=== PATIENT | male | born 1935 | race Two or more races ===

== ENCOUNTER 2024-04-18 19:48 | Inpatient (IN) | payer OTHER, MEDICAID ==
[~2024-04-18] VITALS: Ht 167.6 cm; Wt 96.2 kg
[2024-04-18 20:41] LABS: EOSINOPHILS % (AUTO) 0.1 % (0.0-6.0); MEAN CORPUSCULAR HGB CONC 30 g/dl (31.0-36.0); NEUTROPHILS % (AUTO) 71.2 % (43.0-81.0); RED BLOOD CELL COUNT(AUTO) 2.27 MIL/uL (4.5-6.0)
[2024-04-18 20:48] LABS: BASOPHILS % (AUTO) 0.3 % (0.0-2.0); HEMATOCRIT 22 % (39-51); LYMPHOCYTES # (AUTO) 3.3 K/uL (0.8-4.8); LYMPHOCYTES % (AUTO) 22.1 % (20.0-44.0); MEAN CORPUSCULAR HEMOGLOBIN 29 PG (26.0-33.0); MEAN CORPUSCULAR VOLUME 97 fL (80-96); MONOCYTES # (AUTO) 0.9 K/uL (0.1-1.30); MONOCYTES % (AUTO) 6.3 % (2.0-12.0); NEUTROPHILS # (AUTO) 10.5 K/uL (1.8-8.9); PLATELET COUNT (AUTO) 230 K/uL (150-450); RED CELL DISTRIBUTION WIDTH 24.9 % (11.5-15.0); WHITE BLOOD COUNT (AUTO) 14.7 K/uL (4.3-11.0)
[2024-04-18 20:49] LABS: HEMOGLOBIN 6.6 g/dL (13.5-17.5)
[2024-04-18 20:53] LABS: INR 1.33 (0.91-1.10); PARTIAL THROMBOPLASTIN TIME 44.7 SEC (24.3-34.3); PROTHROMBIN TIME 13.8 SECS (9.2-11.1)
[2024-04-18 21:13] LABS: ALANINE AMINOTRANSFERASE 14 U/L (12-78); ALKALINE PHOSPHATASE 123 U/L (46-116); ASPARTATE AMINOTRANSFERASE 22 U/L (15-37); BILIRUBIN,DIRECT 0.3 mg/dL (0.0-0.2); BILIRUBIN,TOTAL 0.9 mg/dL (0.2-1.0); CALCIUM, SERUM 9.1 mg/dL (8.5-10.1); CARBON DIOXIDE 20 mmol/L (21-32); CHLORIDE 96 mmol/L (98-107); CREATININE 5.8 mg/dL (0.6-1.3); GLUCOSE 270 mg/dL (74-106); NT-PRO BNP > 25000 pg/mL (0-125); POTASSIUM 5.2 mmol/L (3.5-5.1); SODIUM SERUM 137 mmol/L (136-145); TOTAL PROTEIN, SERUM 6.5 g/dL (6.4-8.2)
[2024-04-18 21:14] LABS: LACTIC ACID 6.6 mmol/L (0.4-2.0)
[2024-04-18 21:16] LABS: UREA NITROGEN, BLOOD 81 mg/dL (7-18)
[2024-04-18] MEDS ORDERED: NOREPINEPHRINE 8MG/250ML RTU 250 ML IV ONE (21:28)
[2024-04-18 21:35] LABS: LYMPHOCYTES % (MANUAL) 18 % (16-48); MONOCYTES % (MANUAL) 5 % (0-11.0); NEUTROPHILS % (MANUAL) 77 (42-76); PLATELET ESTIMATE ADEQUATE
[2024-04-18 21:36] LABS: ANISOCYTOSIS 1+; HYPOCHROMASIA 1+; OVALOCYTES 1+
[2024-04-18] MEDS: NOREPINEPHRINE 8 MG in IV D5W 242 ML IV PRN (21:44)
[2024-04-18] MEDS ORDERED: APIX2.5T PO (22:30)
[2024-04-18] MEDS ORDERED: INSU100V7 SQ (22:30)
[2024-04-18] MEDS ORDERED: DOCU100T2 PO (22:30)
[2024-04-18] MEDS ORDERED: FOLI0.8T23 PO (22:30)
[2024-04-18] MEDS ORDERED: SENN-301 PO (22:30)
[2024-04-18] MEDS ORDERED: ASPI-1169 PO (22:30)
[2024-04-18] MEDS ORDERED: FERR325T24 PO (22:30)
[2024-04-18] MEDS ORDERED: [UNRECOGNIZED DRUG - CODE] PO (22:30)
[2024-04-18] MEDS ORDERED: MIRT-74 PO (22:30)
[2024-04-18] MEDS ORDERED: ASCO-352 PO (22:30)
[2024-04-18] MEDS ORDERED: ZINC50TA69 PO (22:30)
[2024-04-18] MEDS ORDERED: FURO-144 PO (22:30)
[2024-04-18] MEDS ORDERED: DORZ1DRO7 OP (22:30)
[2024-04-18] MEDS ORDERED: LIDO1ADH71 (22:30)
[2024-04-18] MEDS ORDERED: CRAN250C PO (22:30)
[2024-04-18] MEDS ORDERED: MIDO10TA PO (22:30)
[2024-04-18] MEDS ORDERED: SEVE800T7 PO (22:30)
[2024-04-19] VITALS (106 sets, daily range): BP systolic 78–161; BP diastolic 21–98; TEMP 97.7–98.7; O2SAT 88–100
[2024-04-19] MEDS ORDERED: Z GUARD REMEDY 4 OZ OINT TP PRN
[2024-04-19] MEDS ORDERED: MAGNESIUM HYDROXIDE 30 ML UDC PO PRN
[2024-04-19] MEDS: NOREPINEPHRINE 8 MG in IV D5W 242 ML IV PRN (00:30)
[2024-04-19] MEDS ORDERED: NITROGLYCERIN 0.4 MG/TAB BOTTLE SL PRN (00:30)
[2024-04-19] MEDS: SODIUM POLYSTYRENE SULFONATE 15 G/60 ML BOTTLE PO ONE (01:43)
[2024-04-19] MEDS: MAG HYDROX/AL HYDROX/SIMETH 30 ML UDC PO PRN (01:43)
[2024-04-19] MEDS: ALBUTEROL FS 2.5 MG/3 ML VIAL.NEB NEB SCH (02:03)
[2024-04-19] MEDS: IPRATROPIUM NEB FS 0.5 MG/2.5 ML AMPUL.NEB NEB SCH (02:03)
[2024-04-19] MEDS ORDERED: AZITHROMYCIN 500 MG VIAL ONE (02:11)
[2024-04-19] MEDS: AZITHROMYCIN 500 MG in IV D5W 250 ML IV SCH (02:28)
[2024-04-19] MEDS: ONDANSETRON HCL/PF 4 MG/2 ML VIAL IVP PRN (05:47)
[2024-04-19 07:18] LABS: BASOPHILS % (AUTO) 0.1 % (0.0-2.0); HEMATOCRIT 25 % (39-51); HEMOGLOBIN 7.9 g/dL (13.5-17.5); LYMPHOCYTES # (AUTO) 2.7 K/uL (0.8-4.8); LYMPHOCYTES % (AUTO) 13.6 % (20.0-44.0); MEAN CORPUSCULAR HEMOGLOBIN 30 PG (26.0-33.0); MEAN CORPUSCULAR HGB CONC 32 g/dl (31.0-36.0); MEAN CORPUSCULAR VOLUME 94 fL (80-96); MONOCYTES # (AUTO) 1.8 K/uL (0.1-1.30); MONOCYTES % (AUTO) 9.1 % (2.0-12.0); NEUTROPHILS % (AUTO) 77.2 % (43.0-81.0); PLATELET COUNT (AUTO) 225 K/uL (150-450); RED BLOOD CELL COUNT(AUTO) 2.66 MIL/uL (4.5-6.0); RED CELL DISTRIBUTION WIDTH 22.7 % (11.5-15.0); WHITE BLOOD COUNT (AUTO) 19.4 K/uL (4.3-11.0)
[2024-04-19 07:25] LABS: LACTIC ACID 4.1 mmol/L (0.4-2.0)
[2024-04-19] MEDS: PANTOPRAZOLE 40 MG VIAL IV SCH (09:11)
[2024-04-19] MEDS ORDERED: EPOETIN ALFA (10,000 UNIT) 10,000 UNIT/ML VIAL SQ SCH (10:30)
[2024-04-19 10:45] LABS: ALANINE AMINOTRANSFERASE 190 U/L (12-78); ALBUMIN 2.9 g/dL (3.4-5.0); ALKALINE PHOSPHATASE 122 U/L (46-116); ASPARTATE AMINOTRANSFERASE 273 U/L (15-37); BILIRUBIN,DIRECT 0.6 mg/dL (0.0-0.2); BILIRUBIN,TOTAL 1.3 mg/dL (0.2-1.0); CALCIUM, SERUM 9.1 mg/dL (8.5-10.1); CARBON DIOXIDE 17 mmol/L (21-32); CHLORIDE 95 mmol/L (98-107); GLUCOSE 397 mg/dL (74-106); MAGNESIUM 2.3 mg/dL (1.8-2.4); PHOSPHORUS 5.4 mg/dL (2.5-4.9); POTASSIUM 5.3 mmol/L (3.5-5.1); SODIUM SERUM 135 mmol/L (136-145); TOTAL PROTEIN, SERUM 6.3 g/dL (6.4-8.2)
[2024-04-19 10:47] LABS: UREA NITROGEN, BLOOD 90 mg/dL (7-18)
[2024-04-19 11:27] LABS: IRON, SERUM 206 ug/dl (50-175); TOTAL IRON BINDING CAPACITY 205 ug/dl (250-450)
[2024-04-19 11:33] LABS: NT-PRO BNP > 25000 pg/mL (0-125)
[2024-04-19 12:35] LABS: CHOLESTEROL 117 mg/dL (<200); HDL CHOLESTEROL 30 mg/dL (40-60); LDL 54 mg/dL (0-99); PREALBUMIN 18.3 MG/DL (18.0-35.7); TRIGLYCERIDES 128 mg/dL (30-150)
[2024-04-19] MEDS: EPOETIN ALFA (10,000 UNIT) 10,000 UNIT/ML VIAL SQ SCH (14:00)
[2024-04-19 15:06] LABS: ANISOCYTOSIS 2+; LYMPHOCYTES % (MANUAL) 10 % (16-48); MONOCYTES % (MANUAL) 5 % (0-11.0); NEUTROPHILS % (MANUAL) 85 (42-76); PLATELET ESTIMATE ADEQUATE
[2024-04-19 15:07] LABS: HYPOCHROMASIA 1+
[2024-04-19] MEDS: BLOOD SUGAR DIAGNOSTIC 1 EACH STRIP VI SCH (16:40)
[2024-04-19] MEDS: VANCOMYCIN 1.5 GM in IV D5W 500 ML IV ONE (17:48)
[2024-04-19] MEDS: PIPERACILLIN /TAZOBACTAM 2.25 G in IV D5W 50 ML IV SCH (19:49)
[2024-04-19] MEDS: ACETAMINOPHEN 325 MG TABLET PO PRN (19:49)
[2024-04-19] MEDS: ZOLPIDEM TARTRATE 5 MG TABLET PO PRN (21:14)
[2024-04-19] MEDS: *INSULIN REGULAR(HUMULIN R)HUM 100 UNIT/ML VIAL SQ PRN (21:32)
[2024-04-20] VITALS (113 sets, daily range): BP systolic 42–162; BP diastolic 17–123; TEMP 98.1–98.6; O2SAT 90–100
[2024-04-20 07:13] LABS: CALCIUM, SERUM 8.5 mg/dL (8.5-10.1); CARBON DIOXIDE 23 mmol/L (21-32); CHLORIDE 91 mmol/L (98-107); CREATININE 4.4 mg/dL (0.6-1.3); GLUCOSE 290 mg/dL (74-106); POTASSIUM 3.4 mmol/L (3.5-5.1); SODIUM SERUM 129 mmol/L (136-145); UREA NITROGEN, BLOOD 54 mg/dL (7-18)
[2024-04-20] MEDS: INSULIN REGULAR, HUMAN 100 UNIT/ML 3 ML VIAL SQ PRN (07:56)
[2024-04-20] MEDS: BISACODYL SUPP (10 MG) 10 MG/SUPP.RECT SUPP.RECT RC ONE (10:22)
[2024-04-20] MEDS: PROSOURCE / PROSTAT (PYXIS) 30 ML UDC PO SCH (12:34)
[2024-04-20 13:45] LABS: BASOPHILS % (AUTO) 0.3 % (0.0-2.0); EOSINOPHILS % (AUTO) 0.1 % (0.0-6.0); HEMATOCRIT 24 % (39-51); HEMOGLOBIN 7.6 g/dL (13.5-17.5); LYMPHOCYTES # (AUTO) 2.1 K/uL (0.8-4.8); MEAN CORPUSCULAR HEMOGLOBIN 29 PG (26.0-33.0); MEAN CORPUSCULAR HGB CONC 32 g/dl (31.0-36.0); MEAN CORPUSCULAR VOLUME 92 fL (80-96); MONOCYTES % (AUTO) 7.7 % (2.0-12.0); NEUTROPHILS # (AUTO) 10.1 K/uL (1.8-8.9); NEUTROPHILS % (AUTO) 75.9 % (43.0-81.0); PLATELET COUNT (AUTO) 196 K/uL (150-450); RED BLOOD CELL COUNT(AUTO) 2.64 MIL/uL (4.5-6.0); RED CELL DISTRIBUTION WIDTH 24.2 % (11.5-15.0); WHITE BLOOD COUNT (AUTO) 13.4 K/uL (4.3-11.0)
[2024-04-20] MEDS: DOCUSATE SODIUM 100 MG CAPSULE PO SCH (16:37)
[2024-04-20] MEDS ORDERED: NOREPINEPHRINE 32 MG in IV NS 0.9% 218 ML IV PRN (20:30)
[2024-04-20] MEDS: IV NS 0.9% 250 ML IV PRN (21:12)
[2024-04-20] MEDS: SENNOSIDES 8.6 MG TABLET PO SCH (21:13)
[2024-04-21] VITALS (106 sets, daily range): BP systolic 66–147; BP diastolic 24–124; TEMP 98–98.6; O2SAT 95–100
[2024-04-21 05:37] LABS: ALANINE AMINOTRANSFERASE 175 U/L (12-78); ALBUMIN 2.7 g/dL (3.4-5.0); ALKALINE PHOSPHATASE 137 U/L (46-116); ASPARTATE AMINOTRANSFERASE 136 U/L (15-37); BILIRUBIN,TOTAL 0.8 mg/dL (0.2-1.0); CARBON DIOXIDE 19 mmol/L (21-32); CHLORIDE 89 mmol/L (98-107); GLUCOSE 342 mg/dL (74-106); SODIUM SERUM 125 mmol/L (136-145); TOTAL PROTEIN, SERUM 6.5 g/dL (6.4-8.2); UREA NITROGEN, BLOOD 62 mg/dL (7-18)
[2024-04-21 05:56] LABS: CALCIUM, SERUM 7.8 mg/dL (8.5-10.1); CREATININE 5.4 mg/dL (0.6-1.3); MAGNESIUM 2.2 mg/dL (1.8-2.4)
[2024-04-21 05:57] LABS: BASOPHILS % (AUTO) 0.3 % (0.0-2.0); EOSINOPHILS % (AUTO) 0.2 % (0.0-6.0); HEMATOCRIT 29 % (39-51); HEMOGLOBIN 8.5 g/dL (13.5-17.5); LYMPHOCYTES # (AUTO) 2.5 K/uL (0.8-4.8); LYMPHOCYTES % (AUTO) 23.4 % (20.0-44.0); MEAN CORPUSCULAR HEMOGLOBIN 30 PG (26.0-33.0); MEAN CORPUSCULAR HGB CONC 29 g/dl (31.0-36.0); MEAN CORPUSCULAR VOLUME 103 fL (80-96); MONOCYTES # (AUTO) 0.9 K/uL (0.1-1.30); MONOCYTES % (AUTO) 8.6 % (2.0-12.0); NEUTROPHILS # (AUTO) 7.1 K/uL (1.8-8.9); NEUTROPHILS % (AUTO) 67.5 % (43.0-81.0); PLATELET COUNT (AUTO) 176 K/uL (150-450); RED BLOOD CELL COUNT(AUTO) 2.83 MIL/uL (4.5-6.0); RED CELL DISTRIBUTION WIDTH 25.1 % (11.5-15.0); WHITE BLOOD COUNT (AUTO) 10.5 K/uL (4.3-11.0)
[2024-04-21 07:10] LABS: HEPATITIS B SURFACE AB Reactive (.)
[2024-04-21] MEDS: PANTOPRAZOLE 40 MG TABLET.DR PO SCH (08:14)
[2024-04-21] MEDS: NOREPINEPHRINE 8 MG in IV D5W 242 ML IV PRN (10:09)
[2024-04-21] MEDS: GUAIFENESIN 300 MG/15 ML UDC PO PRN (16:06)
[2024-04-22] VITALS (113 sets, daily range): BP systolic 51–162; BP diastolic 27–133; TEMP 97.6–98.4; O2SAT 90–100
[2024-04-22] MEDS ORDERED: GUAIFENESIN 300 MG/15 ML UDC PO PRN
[2024-04-22] MEDS: VANCOMYCIN POST DIALYSIS 500MG IV PRN (05:50)
[2024-04-22 07:53] LABS: BASOPHILS % (AUTO) 0.1 % (0.0-2.0); EOSINOPHILS % (AUTO) 0.3 % (0.0-6.0); HEMATOCRIT 24 % (39-51); HEMOGLOBIN 7.9 g/dL (13.5-17.5); LYMPHOCYTES # (AUTO) 1.5 K/uL (0.8-4.8); LYMPHOCYTES % (AUTO) 15.9 % (20.0-44.0); MEAN CORPUSCULAR HEMOGLOBIN 30 PG (26.0-33.0); MEAN CORPUSCULAR HGB CONC 32 g/dl (31.0-36.0); MEAN CORPUSCULAR VOLUME 92 fL (80-96); MONOCYTES # (AUTO) 0.7 K/uL (0.1-1.30); MONOCYTES % (AUTO) 7.6 % (2.0-12.0); NEUTROPHILS # (AUTO) 7.2 K/uL (1.8-8.9); NEUTROPHILS % (AUTO) 76.1 % (43.0-81.0); PLATELET COUNT (AUTO) 166 K/uL (150-450); RED BLOOD CELL COUNT(AUTO) 2.65 MIL/uL (4.5-6.0); RED CELL DISTRIBUTION WIDTH 23.2 % (11.5-15.0); WHITE BLOOD COUNT (AUTO) 9.4 K/uL (4.3-11.0)
[2024-04-22 08:09] LABS: ALANINE AMINOTRANSFERASE 195 U/L (12-78); ALBUMIN 2.7 g/dL (3.4-5.0); ALKALINE PHOSPHATASE 134 U/L (46-116); ASPARTATE AMINOTRANSFERASE 84 U/L (15-37); BILIRUBIN,TOTAL 1.1 mg/dL (0.2-1.0); CALCIUM, SERUM 7.8 mg/dL (8.5-10.1); CARBON DIOXIDE 23 mmol/L (21-32); CHLORIDE 87 mmol/L (98-107); CREATININE 4.6 mg/dL (0.6-1.3); GLUCOSE 254 mg/dL (74-106); PHOSPHORUS 4.5 mg/dL (2.5-4.9); SODIUM SERUM 128 mmol/L (136-145); TOTAL PROTEIN, SERUM 6.2 g/dL (6.4-8.2); UREA NITROGEN, BLOOD 43 mg/dL (7-18)
[2024-04-22] MEDS: HYDROCORTISONE SOD SUCCINATE 100 MG/2 ML VIAL IV SCH (08:44)
[2024-04-22] MEDS: INSULIN GLARGINE, 100 UNIT/ML CARTRIDGE SQ ONE (18:44)
[2024-04-23] VITALS (83 sets, daily range): BP systolic 79–133; BP diastolic 39–105; TEMP 97.5–98.1; O2SAT 91–100
[2024-04-23] MEDS ORDERED: TRAMADOL HCL 50 MG TABLET PO PRN
[2024-04-23] MEDS: TRAMADOL HCL 50 MG TABLET PO PRN (00:46)
[2024-04-23 05:05] LABS: BASOPHILS % (AUTO) 0.2 % (0.0-2.0); HEMATOCRIT 25 % (39-51); HEMOGLOBIN 8.1 g/dL (13.5-17.5); LYMPHOCYTES # (AUTO) 1.1 K/uL (0.8-4.8); LYMPHOCYTES % (AUTO) 10.7 % (20.0-44.0); MEAN CORPUSCULAR HEMOGLOBIN 31 PG (26.0-33.0); MEAN CORPUSCULAR HGB CONC 32 g/dl (31.0-36.0); MEAN CORPUSCULAR VOLUME 96 fL (80-96); MONOCYTES # (AUTO) 0.4 K/uL (0.1-1.30); MONOCYTES % (AUTO) 3.7 % (2.0-12.0); NEUTROPHILS # (AUTO) 9.1 K/uL (1.8-8.9); NEUTROPHILS % (AUTO) 85.4 % (43.0-81.0); PLATELET COUNT (AUTO) 187 K/uL (150-450); RED BLOOD CELL COUNT(AUTO) 2.64 MIL/uL (4.5-6.0); RED CELL DISTRIBUTION WIDTH 24.8 % (11.5-15.0); WHITE BLOOD COUNT (AUTO) 10.7 K/uL (4.3-11.0)
[2024-04-23 05:26] LABS: ALANINE AMINOTRANSFERASE 184 U/L (12-78); ALBUMIN 2.9 g/dL (3.4-5.0); ALKALINE PHOSPHATASE 123 U/L (46-116); ASPARTATE AMINOTRANSFERASE 71 U/L (15-37); BILIRUBIN,TOTAL 0.9 mg/dL (0.2-1.0); CARBON DIOXIDE 22 mmol/L (21-32); CHLORIDE 86 mmol/L (98-107); CREATININE 5.7 mg/dL (0.6-1.3); GLUCOSE 357 mg/dL (74-106); MAGNESIUM 2.2 mg/dL (1.8-2.4); PHOSPHORUS 5.7 mg/dL (2.5-4.9); POTASSIUM 3.1 mmol/L (3.5-5.1); SODIUM SERUM 125 mmol/L (136-145); TOTAL PROTEIN, SERUM 6.8 g/dL (6.4-8.2); UREA NITROGEN, BLOOD 53 mg/dL (7-18)
[2024-04-23] MEDS: ASPIRIN 81 MG TAB.CHEW PO SCH (09:56)
[2024-04-23] MEDS: INSULIN GLARGINE, 100 UNIT/ML CARTRIDGE SQ SCH (21:29)
[2024-04-24] VITALS (98 sets, daily range): BP systolic 70–131; BP diastolic 33–103; TEMP 97.5–98; O2SAT 96–100
[2024-04-24 06:40] LABS: BASOPHILS % (AUTO) 0.1 % (0.0-2.0); HEMATOCRIT 27 % (39-51); HEMOGLOBIN 8.4 g/dL (13.5-17.5); LYMPHOCYTES # (AUTO) 1.5 K/uL (0.8-4.8); LYMPHOCYTES % (AUTO) 10.4 % (20.0-44.0); MEAN CORPUSCULAR HEMOGLOBIN 30 PG (26.0-33.0); MEAN CORPUSCULAR HGB CONC 32 g/dl (31.0-36.0); MEAN CORPUSCULAR VOLUME 94 fL (80-96); MONOCYTES # (AUTO) 0.6 K/uL (0.1-1.30); MONOCYTES % (AUTO) 3.9 % (2.0-12.0); NEUTROPHILS # (AUTO) 12.6 K/uL (1.8-8.9); NEUTROPHILS % (AUTO) 85.6 % (43.0-81.0); PLATELET COUNT (AUTO) 215 K/uL (150-450); RED BLOOD CELL COUNT(AUTO) 2.83 MIL/uL (4.5-6.0); RED CELL DISTRIBUTION WIDTH 26.3 % (11.5-15.0); WHITE BLOOD COUNT (AUTO) 14.7 K/uL (4.3-11.0)
[2024-04-24 06:58] LABS: ALANINE AMINOTRANSFERASE 173 U/L (12-78); ALBUMIN 3.1 g/dL (3.4-5.0); ALKALINE PHOSPHATASE 111 U/L (46-116); ASPARTATE AMINOTRANSFERASE 58 U/L (15-37); BILIRUBIN,TOTAL 0.9 mg/dL (0.2-1.0); CALCIUM, SERUM 8.2 mg/dL (8.5-10.1); CARBON DIOXIDE 29 mmol/L (21-32); CHLORIDE 92 mmol/L (98-107); CREATININE 4.3 mg/dL (0.6-1.3); GLUCOSE 149 mg/dL (74-106); MAGNESIUM 2.1 mg/dL (1.8-2.4); PHOSPHORUS 3.9 mg/dL (2.5-4.9); POTASSIUM 2.9 mmol/L (3.5-5.1); SODIUM SERUM 135 mmol/L (136-145); UREA NITROGEN, BLOOD 34 mg/dL (7-18)
[2024-04-24] MEDS: POTASSIUM CHLORIDE 20 MEQ TAB.PRT.SR PO ONE (10:30)
[2024-04-25] VITALS (94 sets, daily range): BP systolic 67–136; BP diastolic 41–115; TEMP 97.4–98.2; O2SAT 85–100
[2024-04-25 05:15] LABS: CALCIUM, SERUM 7.8 mg/dL (8.5-10.1); CARBON DIOXIDE 27 mmol/L (21-32); CHLORIDE 92 mmol/L (98-107); CREATININE 5.5 mg/dL (0.6-1.3); GLUCOSE 260 mg/dL (74-106); POTASSIUM 2.8 mmol/L (3.5-5.1); SODIUM SERUM 134 mmol/L (136-145); UREA NITROGEN, BLOOD 52 mg/dL (7-18)
[2024-04-25 05:17] LABS: NT-PRO BNP > 25000 pg/mL (0-125)
[2024-04-25] MEDS: POTASSIUM CHLORIDE 20 MEQ TAB.PRT.SR PO ONE (06:27)
[2024-04-26] VITALS (65 sets, daily range): BP systolic 42–159; BP diastolic 17–115; TEMP 97.7–97.9; O2SAT 83–100
[2024-04-26 05:17] LABS: BASOPHILS % (AUTO) 0.1 % (0.0-2.0); HEMATOCRIT 29 % (39-51); HEMOGLOBIN 9.1 g/dL (13.5-17.5); LYMPHOCYTES # (AUTO) 2.2 K/uL (0.8-4.8); LYMPHOCYTES % (AUTO) 13.7 % (20.0-44.0); MEAN CORPUSCULAR HEMOGLOBIN 31 PG (26.0-33.0); MEAN CORPUSCULAR HGB CONC 32 g/dl (31.0-36.0); MEAN CORPUSCULAR VOLUME 98 fL (80-96); MONOCYTES # (AUTO) 0.8 K/uL (0.1-1.30); NEUTROPHILS # (AUTO) 13.3 K/uL (1.8-8.9); NEUTROPHILS % (AUTO) 81.2 % (43.0-81.0); PLATELET COUNT (AUTO) 185 K/uL (150-450); RED BLOOD CELL COUNT(AUTO) 2.92 MIL/uL (4.5-6.0); RED CELL DISTRIBUTION WIDTH 27.9 % (11.5-15.0); WHITE BLOOD COUNT (AUTO) 16.4 K/uL (4.3-11.0)
[2024-04-26 05:20] LABS: CALCIUM, SERUM 8.2 mg/dL (8.5-10.1); CARBON DIOXIDE 23 mmol/L (21-32); CHLORIDE 94 mmol/L (98-107); CREATININE 4.3 mg/dL (0.6-1.3); GLUCOSE 212 mg/dL (74-106); SODIUM SERUM 135 mmol/L (136-145); UREA NITROGEN, BLOOD 39 mg/dL (7-18)
[2024-04-26 05:51] LABS: POTASSIUM 2.7 mmol/L (3.5-5.1)
[2024-04-26] MEDS: POTASSIUM CHLORIDE 20 MEQ TAB.PRT.SR PO ONE (06:47)
[2024-04-26] MEDS: POTASSIUM CHLORIDE 20 MEQ TAB.PRT.SR PO SCH (10:15)
[2024-04-26] MEDS: HYDROCORTISONE SOD SUCCINATE 100 MG/2 ML VIAL IV SCH (12:45)
[2024-04-26] MEDS: AMIODARONE 150 MG in IV D5W 100 ML IV ONE (12:57)
[2024-04-26] MEDS ORDERED: AMIODARONE 450 MG in IV D5W 250 ML IV PRN (13:00)
[2024-04-26] MEDS: AMIODARONE 450 MG in IV D5W 241 ML IV PRN ×2 (13:04→13:05)
[2024-04-26] MEDS: HEPARIN SODIUM, PORCINE 5000 UNITS/1 ML VIAL IV ONE (14:58)
[2024-04-26] MEDS: HEPARIN INFUSION/D5W 500 ML IV PRN (15:10)
[2024-04-26] MEDS: MIDODRINE HCL (5MG) 5 MG TABLET PO SCH ×2 (17:58→20:55)
[2024-04-26] MEDS: TRAMADOL HCL 50 MG TABLET PO PRN (18:51)
[2024-04-27] VITALS (35 sets, daily range): BP systolic 81–128; BP diastolic 30–99; TEMP 97.5–98; O2SAT 18–100
[2024-04-27] MEDS: IPRATROPIUM NEB FS 0.5 MG/2.5 ML AMPUL.NEB ONE ×2 (01:25→07:41)
[2024-04-27] MEDS: ALBUTEROL FS 2.5 MG/3 ML VIAL.NEB ONE ×2 (01:25→07:41)
[2024-04-27 05:08] LABS: BASOPHILS % (AUTO) 0.1 % (0.0-2.0); HEMATOCRIT 30 % (39-51); HEMOGLOBIN 9.2 g/dL (13.5-17.5); LYMPHOCYTES # (AUTO) 3.4 K/uL (0.8-4.8); LYMPHOCYTES % (AUTO) 14.4 % (20.0-44.0); MEAN CORPUSCULAR HEMOGLOBIN 30 PG (26.0-33.0); MEAN CORPUSCULAR HGB CONC 31 g/dl (31.0-36.0); MEAN CORPUSCULAR VOLUME 99 fL (80-96); MONOCYTES # (AUTO) 0.9 K/uL (0.1-1.30); MONOCYTES % (AUTO) 3.7 % (2.0-12.0); NEUTROPHILS # (AUTO) 19.3 K/uL (1.8-8.9); NEUTROPHILS % (AUTO) 81.8 % (43.0-81.0); PLATELET COUNT (AUTO) 202 K/uL (150-450); RED BLOOD CELL COUNT(AUTO) 3.05 MIL/uL (4.5-6.0); RED CELL DISTRIBUTION WIDTH 28.4 % (11.5-15.0); WHITE BLOOD COUNT (AUTO) 23.6 K/uL (4.3-11.0)
[2024-04-27 06:12] LABS: ALANINE AMINOTRANSFERASE 75 U/L (12-78); ALBUMIN 2.8 g/dL (3.4-5.0); ALKALINE PHOSPHATASE 105 U/L (46-116); ASPARTATE AMINOTRANSFERASE 21 U/L (15-37); BILIRUBIN,TOTAL 0.9 mg/dL (0.2-1.0); CALCIUM, SERUM 7.9 mg/dL (8.5-10.1); CARBON DIOXIDE 23 mmol/L (21-32); CHLORIDE 95 mmol/L (98-107); CREATININE 5.2 mg/dL (0.6-1.3); GLUCOSE 143 mg/dL (74-106); PHOSPHORUS 5.9 mg/dL (2.5-4.9); POTASSIUM 3.5 mmol/L (3.5-5.1); SODIUM SERUM 135 mmol/L (136-145); TOTAL PROTEIN, SERUM 6.5 g/dL (6.4-8.2); UREA NITROGEN, BLOOD 53 mg/dL (7-18)
[2024-04-27] MEDS: AMIODARONE HCL 200 MG TABLET PO SCH (22:20)
[2024-04-28] VITALS (102 sets, daily range): BP systolic 82–128; BP diastolic 26–95; TEMP 97.6–98.4; O2SAT 94–100
[2024-04-29] VITALS (90 sets, daily range): BP systolic 83–144; BP diastolic 34–94; TEMP 97.8–98.8; O2SAT 92–100
[2024-04-29] MEDS ORDERED: IV NS 0.9% 250 ML IV PRN (21:00)
[2024-04-30] VITALS (29 sets, daily range): BP systolic 93–135; BP diastolic 34–91; TEMP 97.8–98.3; O2SAT 95–100
[2024-04-30] MEDS: ALBUMIN 25% 25 GM in PREMIX 1 EA IV PRN (16:07)
[2024-05-01] VITALS (13 sets, daily range): BP systolic 95–156; BP diastolic 42–98; TEMP 97.7–98.6; O2SAT 95–100
[2024-05-01 06:36] LABS: BASOPHILS % (AUTO) 0.1 % (0.0-2.0); EOSINOPHILS % (AUTO) 0.4 % (0.0-6.0); HEMATOCRIT 30 % (39-51); HEMOGLOBIN 9.3 g/dL (13.5-17.5); LYMPHOCYTES # (AUTO) 1.3 K/uL (0.8-4.8); LYMPHOCYTES % (AUTO) 12.8 % (20.0-44.0); MEAN CORPUSCULAR HEMOGLOBIN 31 PG (26.0-33.0); MEAN CORPUSCULAR HGB CONC 31 g/dl (31.0-36.0); MEAN CORPUSCULAR VOLUME 101 fL (80-96); MONOCYTES # (AUTO) 0.6 K/uL (0.1-1.30); MONOCYTES % (AUTO) 6.1 % (2.0-12.0); NEUTROPHILS # (AUTO) 8.3 K/uL (1.8-8.9); NEUTROPHILS % (AUTO) 80.6 % (43.0-81.0); PLATELET COUNT (AUTO) 148 K/uL (150-450); RED CELL DISTRIBUTION WIDTH 27.2 % (11.5-15.0); WHITE BLOOD COUNT (AUTO) 10.3 K/uL (4.3-11.0)
[2024-05-01 06:59] LABS: CALCIUM, SERUM 8.1 mg/dL (8.5-10.1); CARBON DIOXIDE 28 mmol/L (21-32); CHLORIDE 94 mmol/L (98-107); CREATININE 3.5 mg/dL (0.6-1.3); GLUCOSE 162 mg/dL (74-106); SODIUM SERUM 138 mmol/L (136-145); UREA NITROGEN, BLOOD 24 mg/dL (7-18)
[2024-05-01] MEDS: HYDROCORTISONE SOD SUCCINATE 100 MG/2 ML VIAL IV SCH (09:17)
[2024-05-01 09:48] LABS: POTASSIUM 2.7 mmol/L (3.5-5.1)
[2024-05-01] MEDS: POTASSIUM CHLORIDE 20 MEQ TAB.PRT.SR PO SCH (17:59)
[2024-05-02] VITALS (24 sets, daily range): BP systolic 80–137; BP diastolic 40–103; TEMP 97.7–98.4; O2SAT 92–100
[2024-05-02] MEDS: DEXTROSE 50%-WATER 50 ML DISP.SYRIN IV PRN (06:06)
[2024-05-02 06:53] LABS: INR 1.11 (0.91-1.10); PARTIAL THROMBOPLASTIN TIME 67.4 SEC (24.3-34.3); PROTHROMBIN TIME 11.7 SECS (9.2-11.1)
[2024-05-02] MEDS ORDERED: IV NS 0.9% 250 ML IV ONE (07:15)
[2024-05-02] MEDS ORDERED: IV SET PRIMARY PUMP SET 1 EA INFUS.SET MC ONE (07:15)
[2024-05-02] MEDS ORDERED: NITROGLYCERIN IN 5 % DEXTROSE 250 ML IV ONE (07:16)
[2024-05-02] MEDS ORDERED: IODIXANOL 150 ML IV ONE (07:16)
[2024-05-02] MEDS ORDERED: LIDOCAINE HCL/MPF 1% 30 ML VIAL IJ ONE (07:16)
[2024-05-02 07:17] LABS: BASOPHILS % (AUTO) 0.1 % (0.0-2.0); EOSINOPHILS % (AUTO) 0.3 % (0.0-6.0); HEMATOCRIT 31 % (39-51); HEMOGLOBIN 9.4 g/dL (13.5-17.5); LYMPHOCYTES # (AUTO) 1.5 K/uL (0.8-4.8); LYMPHOCYTES % (AUTO) 14.5 % (20.0-44.0); MEAN CORPUSCULAR HEMOGLOBIN 31 PG (26.0-33.0); MEAN CORPUSCULAR HGB CONC 30 g/dl (31.0-36.0); MEAN CORPUSCULAR VOLUME 102 fL (80-96); MONOCYTES # (AUTO) 0.7 K/uL (0.1-1.30); MONOCYTES % (AUTO) 6.8 % (2.0-12.0); NEUTROPHILS # (AUTO) 8.1 K/uL (1.8-8.9); NEUTROPHILS % (AUTO) 78.3 % (43.0-81.0); PLATELET COUNT (AUTO) 138 K/uL (150-450); RED BLOOD CELL COUNT(AUTO) 3.05 MIL/uL (4.5-6.0); RED CELL DISTRIBUTION WIDTH 26.8 % (11.5-15.0); WHITE BLOOD COUNT (AUTO) 10.4 K/uL (4.3-11.0)
[2024-05-02 07:26] LABS: CALCIUM, SERUM 8.5 mg/dL (8.5-10.1); CARBON DIOXIDE 27 mmol/L (21-32); CHLORIDE 95 mmol/L (98-107); CREATININE 4.3 mg/dL (0.6-1.3); POTASSIUM 3.5 mmol/L (3.5-5.1); SODIUM SERUM 138 mmol/L (136-145)
[2024-05-02 08:41] LABS: GLUCOSE 63 mg/dL (74-106); UREA NITROGEN, BLOOD 38 mg/dL (7-18)
[2024-05-02] MEDS ORDERED: FENTANYL PF 100MCG/2ML AMPUL ONE (09:14)
[2024-05-02] MEDS ORDERED: IODIXANOL 320MG/ML 100 ML IV ONE (09:36)
[2024-05-03] VITALS (14 sets, daily range): BP systolic 90–149; BP diastolic 43–113; TEMP 98.1–99; O2SAT 93–100
[2024-05-03] MEDS: APIXABAN 2.5 MG TABLET PO SCH (08:36)
[2024-05-04] VITALS (10 sets, daily range): BP systolic 93–145; BP diastolic 69–110; TEMP 97.5–98.2; O2SAT 95–100
[2024-05-04] MEDS ORDERED: AMIO400T5 PO (12:07)
[2024-05-04] MEDS ORDERED: MIDO5TAB4 PO (16:37)
== END 2024-05-04 18:08 | disposition home health service (06) | DRG 871 ==
LOC: ER 19:49 → ICU 22:28 → TELE-TD 04-30 11:49 → ICU 05-02 10:56 → TELE-TD 05-02 14:18 → TELE1 05-03 09:34
PROVIDERS: ADMIT Nurse Practitioner Family; ATTEND Nurse Practitioner Family
PROC: 5A1D70Z Performance of Urinary Filtration, Intermittent, Less than 6 Hours Per Day (ICD-10-PCS; principal; 2024-04-19)
PROC: 30233N1 Transfusion of Nonautologous Red Blood Cells into Peripheral Vein, Percutaneous Approach (ICD-10-PCS; 2024-04-19)
PROC: 05HD33Z Insertion of Infusion Device into Right Cephalic Vein, Percutaneous Approach (ICD-10-PCS; 2024-04-20)
PROC: B2161ZZ Fluoroscopy of Right and Left Heart using Low Osmolar Contrast (ICD-10-PCS; 2024-05-02)
PROC: B3101ZZ Fluoroscopy of Thoracic Aorta using Low Osmolar Contrast (ICD-10-PCS; 2024-05-02)
PROC: 4A023N8 Measurement of Cardiac Sampling and Pressure, Bilateral, Percutaneous Approach (ICD-10-PCS; 2024-05-02)
DX: A41.50 Gram-negative sepsis, unspecified (principal); I21.4 Non-ST elevation (NSTEMI) myocardial infarction; N18.6 End stage renal disease; J96.01 Acute respiratory failure with hypoxia; J15.69 Pneumonia due to other Gram-negative bacteria; R65.21 Severe sepsis with septic shock; I50.43 Acute on chronic combined systolic (congestive) and diastolic (congestive) heart failure; I13.2 Hypertensive heart and chronic kidney disease with heart failure and with stage 5 chronic kidney disease, or end stage renal disease; I48.20 Chronic atrial fibrillation, unspecified; M84.422A Pathological fracture, left humerus, initial encounter for fracture; M84.421A Pathological fracture, right humerus, initial encounter for fracture; E87.20 Acidosis, unspecified; E44.0 Moderate protein-calorie malnutrition; J98.11 Atelectasis; K92.2 Gastrointestinal hemorrhage, unspecified; D63.8 Anemia in other chronic diseases classified elsewhere; Z95.1 Presence of aortocoronary bypass graft; E88.09 Other disorders of plasma-protein metabolism, not elsewhere classified; E11.22 Type 2 diabetes mellitus with diabetic chronic kidney disease; I25.10 Atherosclerotic heart disease of native coronary artery without angina pectoris; J40 Bronchitis, not specified as acute or chronic; E87.5 Hyperkalemia; E87.6 Hypokalemia; F03.90 Unspecified dementia, unspecified severity, without behavioral disturbance, psychotic disturbance, mood disturbance, and anxiety; K44.9 Diaphragmatic hernia without obstruction or gangrene; E11.621 Type 2 diabetes mellitus with foot ulcer; L97.521 Non-pressure chronic ulcer of other part of left foot limited to breakdown of skin; N30.90 Cystitis, unspecified without hematuria; M89.8X9 Other specified disorders of bone, unspecified site; E66.9 Obesity, unspecified; Z79.01 Long term (current) use of anticoagulants; Z79.899 Other long term (current) drug therapy; Z79.82 Long term (current) use of aspirin; Z79.4 Long term (current) use of insulin; Z87.891 Personal history of nicotine dependence; Z86.73 Personal history of transient ischemic attack (TIA), and cerebral infarction without residual deficits; Z99.2 Dependence on renal dialysis; Z71.3 Dietary counseling and surveillance
CPT/HCPCS: 36415; 36600; 71045-TC; 71250-TC; 73020; 74018; 80048-TC; 80053-TC; 80061-TC; 80076-TC; 80202-TC; 82533; 82803-TC; 82962-TC; 83540-TC; 83605-TC; 83735-TC; 83880; 84100-TC; 84134-TC; 84443-TC; 84484-TC; 85025-TC; 85610-TC; 85730-TC; 86706; 86850-TC; 87040-TC; 87081-TC; 87340; 90935-TC; 92526; 92611-TC; 93307-TC; 93970-TC; 93971-TC; 94760-TC; 94762-TC; 94799-TC; 97110-TC; 97116-TC; 97530-TC; 97535-TC; A4216; A4223; A6403; G0378; J0282; J0456; J0885; J1644; J1720; J1815; J2405; J2470; J2543; J3010; J3370; J3371; J3490; J7030; J7040; J7050; J7060; P9016; P9047; Q9967